=== PATIENT | male | born 1980 | race Caucasian/White ===

== ENCOUNTER 2016-11-08 15:40 | Emergency (ER) | payer BC ==
--- OUTSIDE RECORDS SUMMARY | 2016-11-08 16:38 | XMS REPORT | Continuity of Care Document ---
:1980 Author Organization [facility] [place] [address] Care Team Providers Name Role Phone Theresa Harris Primary Care Provider [phone] Source Comments This disclosure is being made pursuant to the [employer] program and maynot contain all information available regarding this patient.[facility] Active Allergies and Adverse Reactions No Known Allergies Current Medications Be aware that medications may not be up to date as of this document. Alwaysverify current medications with the patient. Prescription Sig. Disp. Refills Start Date End Date Status modafinil (PROVIGIL) Take 200 mg by Active 200 MG tablet mouth daily. bifantis (ALIGN) 4 MG Take 1 capsule by 30 capsule 0 05/20/2016 Active CAPS mouth daily. Active Problems Problem Noted Date Disorder of male genital organs 01/18/2013 Overview: Overview: KAYLA MOORE MD Urinary frequency 01/18/2013 Overview: Overview: KAYLA MOORE MD Abdominal pain 01/05/2013 Overview: Overview: JAYY JUAREZ Prostatitis 10/12/2012 Overview: Overview: JULIA YORK MD Exercise counseling 01/06/2009 Overview: Overview: Pain in soft tissues of limb 01/06/2009 Overview: Overview: Nonallopathic lesion of lumbar region 01/06/2009 Overview: Overview: Nonallopathic lesion of pelvic region 01/06/2009 Overview: Overview: Nonallopathic lesion of sacral region 01/06/2009 Overview: Overview: Sprain and strain of hip and thigh 01/06/2009 Overview: Overview: Backache 04/18/2006 Overview: Overview: IVA WEBSTER MD Social History Tobacco Use Types Packs/Day Years Used Date Never Smoker Smokeless Tobacco: Never Used Tobacco Cessation:Counseling Given: No Comments: Alcohol Use Drinks/Week oz/Week Comments Yes Alcoholic Drinks/day: CURRENT ALCOHOL USER Last Filed Vital Signs Vital Sign Reading Time Taken Blood Pressure 102/62 05/20/2016 12:49 PM DESKTOP ENGINEER Pulse 68 05/20/2016 12:49 PM DESKTOP ENGINEER Temperature 36.1 C (97 F) 05/20/2016 12:49 PM DESKTOP ENGINEER Respiratory Rate 18 01/18/2013 2:37 PM CDT Height 1.829 m (6') 11/24/2012 10:57 AM CDT Weight 89.721 kg (197 lb 12.8 oz) 05/20/2016 12:49 PM DESKTOP ENGINEER Body Mass Index 26.82 05/20/2016 12:49 PM DESKTOP ENGINEER Oxygen Saturation - - Plan of Care Health Maintenance Due Date Last Done Comments Tetanus/Pertussis (1 - Tdap) 12/03/1998 Influenza Immunization (#1) 2016 Results from Last 3 Months Not on file Insurance Payer Benefit Plan / Subscriber ID Type Phone Address Group [facility] [id number] Out of State [phone] [address] [facility] [place], [place] ONLY [address] PB [employer] PB CORPORATE NA PB [place] [employer] Corporate Employ[employer] Work[employer] [address] [employer] [phone] [employer] [facility] Home: [phone]
--- NOTE | 2016-11-08 16:51 | ERNOTE ---
GI Bleeding/Rectal Pain ER Date of Service: 11/08/16 Presenting Symptoms: hemorrhoids Time Seen by Provider: 11/08/16 16:17 Source: patient, RN notes reviewed Exam Limitations: no limitations Immunizations: IMMUNIZATION HX History of Influenza Vaccine No Hx Pneumococcal Vaccination No Allergies/Adverse Reactions: Allergies No Known Allergies Allergy (Verified 11/08/16 15:45) Home Medications: HOME MEDICATIONS Aspirin [Aspirin Chewable] 81 mg PO DAILY 12/17/14 [Last Taken Unknown] Hydrocortisone/Pramoxine [Hydrocort-Pramoxine 2.5-1% Crm] 30 gm RC QID #1 cream.appl 11/08/16 [Last Taken Unknown] Narrative: 35 y/o male ambulatory to the ED for a painful hemorrhoid that he noticed 4 days ago. He has had problems with hemorrhoids for several years. He had a thrombosed hemorrhoid drained here about 2 years ago. He has been using a left over prescription cream and witch criselda. He denies constipation. Date (Duration): 10/07/16 Nausea/Vomiting: Present: none Abdominal Pain: Present: none Associated Symptoms: Reports: rectal pain. Denies: constipation/hard stools, diarrhea Prior Treament: Reports: similar symptoms before Review of Systems - Review of Systems Constitutional: Absent: recent illness, fever, chills EYE: Present: no symptoms reported ENT: Present: no symptoms reported Respiratory: Present: no symptoms reported Cardiology: Present: no symptoms reported Gastrointestinal/Abdominal: Present: See HPI Genitourinary: Absent: dysuria, hematuria Musculoskeletal: Absent: back pain, muscle pain Skin: Present: lumps. Absent: rash, lesions Neurological: Absent: dizziness/light-headedness, weakness Endocrine: Present: no symptoms reported Hematologic/Lymphatic: Present: no symptoms reported Psych: Present: no symptoms reported - Patient's Past Medical History Patient History - Medical: No pertinent hx Patient History - Cardiac/Respiratory: No pertinent hx Patient History - Cancer: No Hx of Cancer Patient History - Surgical Procedures: No surgical history Patient History - Other: None - Social History Living Situations: home Psych History: No pertinent hx Alcohol Use: none Drug Use: none - Immunizations Hx Pneumococcal Vaccination: No History of Influenza Vaccine: No Physical Exam - Physical Exam General Appearance: Present: wd/wn, alert, other - Standing in exam room, sitting is painful Respiratory: Present: no respiratory distress, no accessory muscle use Rectal Exam: Present: tenderness, hemorrhoids - moderate sized external hemorrhoid, flesh colored, not tense, reducible. Absent: decreased tone Extremity Exam: Present: normal inspection, normal range of motion, no edema Neurological Exam: Present: alert, oriented, normal mood/affect, no motor/ sensory deficits Skin Exam: Present: normal color, warm/dry ED Progress - Vital Signs Patient's Vital Signs:: I have reviewed the patient's vital signs. Vital Signs: Vital Signs 11/08/16 11/08/16 15:41 16:17 Temperature 37.1 C 37.2 C Pulse Rate 66 68 Respiratory 12 16 Rate Blood Pressure 140/87 122/83 O2 Sat by Pulse 97 96 Oximetry - Progress/Reassessment Chief Complaint: Rectal Bleeding Progress:: Unchanged Plan - Plan Plan: Patient presented thinking that the hemorrhoid would need an I&D, however it does not appear to be thrombosed. Discussed that an I&D would not be beneficial at this point. To continue conservative treatment and follow up as needed. Departure Clinical Impression: Hemorrhoids Qualifiers: Hemorrhoid type: unspecified Qualified Code(s): K64.9 - Unspecified hemorrhoids - Departure Disposition: Home Follow Up Needed Condition: Stable Instructions: Hemorrhoids, [id number] Referrals: Theresa Harris APN [Primary Care Provider] - Prescriptions: Hydrocortisone/Pramoxine [Hydrocort-Pramoxine 2.5-1% Crm] 30 gm RC QID #1 cream.appl
[2016-11-08 16:58] VITALS: BP 154/76
== END 2016-11-08 16:58 | disposition home or self-care (01) ==
LOC: ER 15:40
DX: K64.9 Unspecified hemorrhoids (principal)